=== PATIENT | male | born 1950 | race Caucasian/White ===

== ENCOUNTER 2016-03-05 21:33 | Emergency (ER) | payer BC ==
[2016-03-05] MEDS ORDERED: NS 0.9% 1000 ML* 1,000 ML IV ONE (22:40)
[2016-03-05] MEDS ORDERED: Famotidine IV* 10 MG/ML 2 ML (20 mg) IV ONE (22:40)
[2016-03-05] MEDS ORDERED: Ondansetron INJ* 2 MG/ML VIAL IV ONE (22:40)
[2016-03-05 22:57] LABS: Hematocrit 47 % (42-52); Hemoglobin 15.4 g/dl (14.0-18.0); Mean Corpuscular HGB Conc 33 g/dl (31-36); Mean Corpuscular Hemoglobin 28 pg (27-31); Mean Corpuscular Volume 86 fL (80-94); Mean Platelet Volume 9 um3 (7.4-10.4); Red Blood Count 5.49 10^6/ul (4.0-5.4); Red Cell Distribution Width 17 % (10.5-15); White Blood Count 14.5 10^3/ul (3.5-10.8)
[2016-03-05 23:12] LABS: C Reactive Protein 2.49 mg/L (< 5.00); Calcium 9.2 mg/dL (8.6-10.3); EGFR African American 97.1 (>60); EGFR Non-African American 75.5 (>60); Globulin 3.4 g/dL (2-4); Magnesium 2.2 mg/dL (1.9-2.7); Potassium 3.6 mmol/L (3.5-5.0); Total Bilirubin 1.9 mg/dL (0.2-1.0); Total Protein 7.4 g/dL (6.4-8.9)
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
[2016-03-06 00:48] LABS: Urine Bilirubin Negative (Negative); Urine Glucose Negative (Negative); Urine Nitrite Negative (Negative)
[2016-03-06] MEDS ORDERED: Metoclopramide IV* 5 MG/ML 2 ML VIAL IV ONE (02:48)
[2016-03-06 04:09] VITALS: BP 148/76
== END 2016-03-06 04:07 | disposition home or self-care (01) ==
LOC: ED 21:33
DX: K92.0 Hematemesis (principal); R11.2 Nausea with vomiting, unspecified
CPT/HCPCS: 36415; 80053; 81003; 83605; 83690; 83735; 85025; 85610; 86140; 86850; 86900; 86901; 93005; 96374; 96375; 99284; J2405; J2765

== ENCOUNTER 2017-05-09 06:08 | Emergency (ER) | payer BC ==
[2017-05-09 08:22] LABS: Hematocrit 41 % (42-52); Hemoglobin 13.8 g/dl (14.0-18.0); Mean Corpuscular HGB Conc 34 g/dl (31-36); Mean Corpuscular Hemoglobin 31 pg (27-31); Mean Corpuscular Volume 91 fL (80-94); Mean Platelet Volume 8 um3 (7.4-10.4); Platelet Count 349 10^3/ul (150-450); Red Blood Count 4.48 10^6/ul (4.0-5.4); Red Cell Distribution Width 14 % (10.5-15); White Blood Count 16.9 10^3/ul (3.5-10.8)
[2017-05-09 08:41] LABS: EGFR Non-African American 72.7 (>60)
[2017-05-09 08:50] VITALS: BP 139/72
[2017-05-09 09:20] LABS: ABS Basophils 0.1 10^3/ul (0-0.2); ABS Eosinophils 0.7 10^3/ul (0-0.6); ABS Lymphocytes 3.3 10^3/ul (1.0-4.8); ABS Monocytes 1.9 10^3/ul (0-0.8); ABS Neutrophils 11.1 10^3/ul (1.5-7.7); ABS Nucleated RBC 0 10^3/ul; Eosinophil % 3.9 % (0-6); Lymphocyte % 19.3 % (25-47); Nucleated Red Blood Cells % 0.1
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
== END 2017-05-09 08:49 | disposition home or self-care (01) ==
LOC: ED 06:08
DX: R04.0 Epistaxis (principal); Z79.01 Long term (current) use of anticoagulants
CPT/HCPCS: 36415; 80053; 85025; 99283

== ENCOUNTER 2018-07-20 22:47 | Emergency (ER) | payer BC ==
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
[2018-07-21 00:26] VITALS: BP 141/67
== END 2018-07-21 00:25 | disposition home or self-care (01) ==
LOC: ED 22:47
DX: H43.811 Vitreous degeneration, right eye (principal); H43.391 Other vitreous opacities, right eye; H43.11 Vitreous hemorrhage, right eye; W50.0XXA Accidental hit or strike by another person, initial encounter; Y92.9 Unspecified place or not applicable; E78.00 Pure hypercholesterolemia, unspecified; I10 Essential (primary) hypertension; Z86.73 Personal history of transient ischemic attack (TIA), and cerebral infarction without residual deficits; Z95.2 Presence of prosthetic heart valve; Z79.82 Long term (current) use of aspirin; Z79.01 Long term (current) use of anticoagulants
CPT/HCPCS: 99282

== ENCOUNTER 2020-10-14 09:52 | Inpatient (IN) ==
[2020-10-14] MEDS ORDERED: Lactated Ringers 1000 ml BAG 1,000 ML IV ONE (12:17)
[2020-10-14 12:55] LABS: ABS Basophils 0.1 10^3/ul (0-0.2); ABS Lymphocytes 0.5 10^3/ul (1.0-4.8); ABS Monocytes 0.2 10^3/ul (0-0.8); ABS Neutrophils 11.6 10^3/ul (1.5-7.7); Hematocrit 46 % (42-52); Hemoglobin 15.7 g/dL (14.0-18.0); Lymphocyte % 4.4 %; Mean Corpuscular HGB Conc 34 g/dL (31-36); Mean Corpuscular Hemoglobin 31 pg (27-31); Mean Corpuscular Volume 92 fL (80-94); Mean Platelet Volume 8.3 fL (7.4-10.4); Nucleated Red Blood Cells % 0.1; Platelet Count 278 10^3/uL (150-450); Red Blood Count 5.04 10^6 /uL (4.18-5.48); Red Cell Distribution Width 14 % (10-15); White Blood Count 12.5 10^3/uL (3.5-10.8)
[2020-10-14 13:00] LABS: Rapid COVID-19 Molecular Undetected (Undetected)
[2020-10-14 13:10] LABS: Activated Partial Thrombo Time 27.7 seconds (26.0-38.0); Fibrinogen 438.4 mg/dL (110.8-404.3); INR 1.2 (0.86-1.15)
[2020-10-14 13:12] LABS: Albumin 3.9 g/dL (3.2-5.2); Albumin/Globulin Ratio 1.1 (1-3); C Reactive Protein 120.1 mg/L (<8.01); Calcium 8.9 mg/dL (8.6-10.3); EGFR African American 49.1 (>60); EGFR Non-African American 40.6 (>60); Globulin 3.4 g/dL (2-4); Potassium 3.6 mmol/L (3.5-5.0); Total Bilirubin 2.6 mg/dL (0.2-1.0); Total Protein 7.3 g/dL (6.4-8.9)
[2020-10-14 13:14] LABS: Troponin I 0.02 ng/mL (<0.03)
[2020-10-14] MEDS ORDERED: Iodixanol (CONTRAST) 320 MG/ML 100 ML SDV IV ONE ×2 (13:35→14:26)
[2020-10-14 14:58] LABS: Influenza A Molecular Negative (Negative); Influenza B Molecular Negative (Negative)
[2020-10-14] MEDS ORDERED: Ondansetron 4 mg VIAL 2 MG/ML 2 ml VIAL IV PRN (15:50)
[2020-10-14 16:52] LABS: Direct Bilirubin 0.5 mg/dL (0.03-0.18)
[2020-10-14] MEDS: Aspirin EC 81 mg TAB.EC (enteric coated) PO SCH (18:35)
[2020-10-14] MEDS: NS 0.9% 1000 ml BAG 1,000 ML IV SCH (18:36)
[2020-10-14] MEDS: Enoxaparin 40 MG/0.4 ML SYR SUBCUT SCH (21:25)
[2020-10-15 09:01] LABS: ABS Lymphocytes 0.7 10^3/ul (1.0-4.8); ABS Monocytes 0.1 10^3/ul (0-0.8); ABS Neutrophils 8.6 10^3/ul (1.5-7.7); Hematocrit 44 % (42-52); Hemoglobin 14.9 g/dL (14.0-18.0); Lymphocyte % 7.2 %; Mean Corpuscular HGB Conc 34 g/dL (31-36); Mean Corpuscular Hemoglobin 31 pg (27-31); Mean Corpuscular Volume 91 fL (80-94); Mean Platelet Volume 8.6 fL (7.4-10.4); Nucleated Red Blood Cells % 0.3; Platelet Count 168 10^3/uL (150-450); Red Blood Count 4.78 10^6 /uL (4.18-5.48); Red Cell Distribution Width 14 % (10-15); White Blood Count 9.4 10^3/uL (3.5-10.8)
[2020-10-15 09:13] LABS: Calcium 8.1 mg/dL (8.6-10.3); EGFR Non-African American 51.2 (>60); Potassium 3.7 mmol/L (3.5-5.0)
[2020-10-15 11:41] LABS: Urine Appearance Cloudy; Urine Bilirubin Negative (Negative); Urine Blood 2+ (Negative); Urine Color Amber; Urine Glucose Negative (Negative); Urine Ketones Trace (Negative); Urine Nitrite Negative (Negative); Urine Protein 2+(100 mg/dL) (Negative); Urine Specific Gravity 1.041 (1.002-1.030); Urine Urobilinogen Positive (Negative)
[2020-10-15 11:49] LABS: Urine Bacteria 1+ (Absent); Urine Red Blood Cell 3+(>10/hpf) (Absent); Urine White Blood Cell Trace(0-5/hpf) (Absent)
[2020-10-15 12:12] LABS: C Reactive Protein 207.11 mg/L (<8.01)
[2020-10-15 13:43] LABS: TSH Ultra Thyroid Stim Horm 0.37 mcIU/mL (0.34-5.60)
[2020-10-15] MEDS: NS 0.9% 1000 ml BAG 1,000 ML IV SCH (14:02)
[2020-10-15 14:55] LABS: Erythrocyte Sed Rate 10 mm/Hr (0-19)
[2020-10-15] MEDS: Aspirin EC 81 mg TAB.EC (enteric coated) PO SCH (17:42)
[2020-10-15 20:06] LABS: Calcium 7.9 mg/dL (8.6-10.3); EGFR African American 66.4 (>60); EGFR Non-African American 54.9 (>60); Potassium 3.5 mmol/L (3.5-5.0)
[2020-10-15 20:28] LABS: RBC Parasite Smear No Parasites Seen (No Parasite)
[2020-10-15] MEDS: Enoxaparin 40 MG/0.4 ML SYR SUBCUT SCH (20:45)
[2020-10-16] MEDS: NS 0.9% 1000 ml BAG 1,000 ML IV SCH ×3 (00:17→22:31)
[2020-10-16 01:53] LABS: Hepatitis B Surface Antigen Nonreactive (Nonreactive)
[2020-10-16] MEDS ORDERED: diPHENhydraMINE 25 mg TAB PO PRN (01:57)
[2020-10-16 01:58] LABS: Hepatitis A Ab IgM Negative (Negative); Hepatitis B Core IgM Nonreactive (Nonreactive)
[2020-10-16 02:10] LABS: Hepatitis C Antibody Negative (Negative)
[2020-10-16 06:59] LABS: ABS Basophils 0.1 10^3/ul (0-0.2); ABS Lymphocytes 1.3 10^3/ul (1.0-4.8); ABS Monocytes 0.4 10^3/ul (0-0.8); ABS Neutrophils 5.9 10^3/ul (1.5-7.7); Hematocrit 39 % (42-52); Hemoglobin 13.6 g/dL (14.0-18.0); Lymphocyte % 16.9 %; Mean Corpuscular HGB Conc 35 g/dL (31-36); Mean Corpuscular Hemoglobin 31 pg (27-31); Mean Corpuscular Volume 90 fL (80-94); Mean Platelet Volume 9.4 fL (7.4-10.4); Platelet Count 103 10^3/uL (150-450); Red Blood Count 4.34 10^6 /uL (4.18-5.48); Red Cell Distribution Width 14 % (10-15); White Blood Count 7.7 10^3/uL (3.5-10.8)
[2020-10-16 07:15] LABS: Albumin/Globulin Ratio 1.1 (1-3); C Reactive Protein 244.95 mg/L (<8.01); Calcium 7.8 mg/dL (8.6-10.3); Direct Bilirubin 0.8 mg/dL (0.03-0.18); EGFR African American 86.9 (>60); EGFR Non-African American 71.8 (>60); Globulin 2.8 g/dL (2-4); Indirect Bilirubin 1.4 mg/dL (0.3-1.0); Potassium 3.7 mmol/L (3.5-5.0); Total Bilirubin 2.2 mg/dL (0.2-1.0); Total Protein 5.8 g/dL (6.4-8.9)
[2020-10-16 10:11] LABS: INR 1.2 (0.86-1.15)
[2020-10-16 17:39] LABS: Anaplasma phagocytophilum Positive (Negative); B. miyamotoi PCR, B Negative (Negative); Babesia divergens/MO-1 Negative (Negative); Babesia ducani Negative (Negative); Ehrlichia chaffeensis Negative (Negative); Ehrlichia ewingii/canis Negative (Negative); Ehrlichia muris eauclairensis Negative (Negative)
[2020-10-16] MEDS: Aspirin EC 81 mg TAB.EC (enteric coated) PO SCH (18:01)
[2020-10-16] MEDS: Enoxaparin 40 MG/0.4 ML SYR SUBCUT SCH (20:23)
[2020-10-17 08:38] LABS: Hematocrit 39 % (42-52); Hemoglobin 13.4 g/dL (14.0-18.0); Mean Corpuscular HGB Conc 34 g/dL (31-36); Mean Corpuscular Hemoglobin 31 pg (27-31); Mean Corpuscular Volume 91 fL (80-94); Mean Platelet Volume 10.9 fL (7.4-10.4); Platelet Count 89 10^3/uL (150-450); Red Blood Count 4.28 10^6 /uL (4.18-5.48); Red Cell Distribution Width 14 % (10-15); White Blood Count 7.6 10^3/uL (3.5-10.8)
[2020-10-17] MEDS: NS 0.9% 1000 ml BAG 1,000 ML IV SCH (08:39)
[2020-10-17 09:00] LABS: Albumin 2.9 g/dL (3.2-5.2); Albumin/Globulin Ratio 1.1 (1-3); C Reactive Protein 158.86 mg/L (<8.01); Calcium 7.9 mg/dL (8.6-10.3); Direct Bilirubin 0.4 mg/dL (0.03-0.18); EGFR African American 100.3 (>60); EGFR Non-African American 82.9 (>60); Globulin 2.7 g/dL (2-4); Indirect Bilirubin 1.2 mg/dL (0.3-1.0); Potassium 3.8 mmol/L (3.5-5.0); Total Bilirubin 1.6 mg/dL (0.2-1.0); Total Protein 5.6 g/dL (6.4-8.9)
[2020-10-17 10:11] LABS: RBC Morphology Normal (Normal)
[2020-10-17 10:12] LABS: ABS Eosinophils 0.1 10^3/ul (0-0.6); ABS Lymphocytes 4.3 10^3/ul (1.0-4.8); ABS Monocytes 0.8 10^3/ul (0-0.8); ABS Neutrophils 2.3 10^3/ul (1.5-7.7); Eosinophil % 1.1 %; Lymphocyte % 56.8 %; Nucleated Red Blood Cells % 0.3
[2020-10-17 15:44] VITALS: BP 138/73
== END 2020-10-17 17:40 | disposition home or self-care (01) | DRG 720 ==
LOC: ED 09:52 → SUATTDRO 20:08 → MED 20:08
PROVIDERS: ADMIT Hospitalist; ATTEND Internal Medicine